=== PATIENT | female | born 1950 | race Caucasian/White ===

== ENCOUNTER 2017-09-07 08:47 | Outpatient (CLI) | payer MEDICARE, BC ==
[2017-09-07] MEDS ORDERED: Gadobenate Dimeglumine 529 MG/1 ML (20ML VIAL) ONE (09:00)
--- NOTE | 2017-09-07 11:27 | MRI ---
PRE AND POSTCONTRAST ENHANCED MRI IMAGES BRAIN: HISTORY: Dizziness and giddiness. FINDINGS: The patient received 13 mL of MultiHance given IV. Multiplanar, multisequence pre- and postcontrast-enhanced MRI images of the brain demonstrate the br ain to be unremarkable. No evidence of intracranial masses, hemorrhages, strokes, or contusions see n. Ventricles are of normal size. No evidence of areas of diffusion restriction seen. No abnormal areas of intracranial enhancement seen. Normal flow voids seen of the major intracranial vessels. IMPRESSION: Unremarkable pre- and postcontrast-enhanced MRI images of the brain. POS: OK
== END 2017-09-07 08:48 | disposition home or self-care (01) ==
LOC: SCSMRI 08:47
PROVIDERS: ATTEND Neurological Surgery
DX: R42 Dizziness and giddiness (principal)
CPT/HCPCS: 70553; A9579